=== PATIENT | male | born 1995 | race Two or more races ===

== ENCOUNTER 2017-12-19 18:52 | Emergency (ER) | payer SELFPAY ==
[~2017-12-19] VITALS: Ht 188 cm; Wt 113.4 kg
--- NOTE | 2017-12-19 18:52 | NUR ---
BBRA 102 FROM [facility]: CP SINCE TODAY. X2 NITRO AND 162 ASA GIVEN EN ROUTE. VSS NAD. STATES "THE MEDICATIONS HELPED BUT MY CHEST PAIN IS COMING BACK A LITTLE BIT. FEELS LIKE PRESSURE ON MY HEART" A/OX4. WILL CONTINUE TO MONITOR FOR ANY CHANGES DURING THE SHIFT.
--- NOTE | 2017-12-19 19:30 | NUR ---
CDA TEACHER DEGRASSE AT BEDSIDE FOR EVAL
--- NOTE | 2017-12-19 19:40 | NUR ---
OPTICAL INSTRUMENT ASSEMBLER AT BEDSIDE
--- NOTE | 2017-12-19 19:52 | NUR ---
EKG TO BED DONE BY SERVICE CAR DRIVER
[2017-12-19] MEDS ORDERED: LORAZEPAM 1 MG TABLET ONE (19:57)
[2017-12-19] MEDS ORDERED: LORAZEPAM 1 MG TABLET PO ONE (20:00)
[2017-12-19 20:40] VITALS: BP 149/79
== END 2017-12-19 20:41 | disposition home or self-care (01) ==
LOC: ER 18:54
DX: R07.89 Other chest pain (principal); F41.9 Anxiety disorder, unspecified; F14.10 Cocaine abuse, uncomplicated; F15.10 Other stimulant abuse, uncomplicated; Z60.2 Problems related to living alone
CPT/HCPCS: 71045-TC; A4606; Z7610